=== PATIENT | male | born 1965 | race African-American/Black ===

== ENCOUNTER 2016-12-19 22:18 | Observation (INO) | payer BC ==
[~2016-12-19] VITALS: Ht 177.8 cm; Wt 70.6 kg
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
[2016-12-20 00:25] LABS: BASO % 0 % (0-3); EOS % 0 % (0-3); HEMATOCRIT 41.8 % (39.0-53.0); HEMOGLOBIN 13.9 g/dL (13.0-17.5); LYMPH # 1.5 x10^3/uL (1.0-4.8); LYMPH % 22 % (24-48); MEAN CORPUSCULAR HEMOGLOBIN 30 pg (25-35); MEAN CORPUSCULAR HGB CONC 33 g/dL (31-37); MEAN CORPUSCULAR VOLUME 92 fL (79-100); MONO % 7 % (0-9); NEUT % 71 % (31-73); PLATELET COUNT 159 x10^3/uL (140-400); RED BLOOD COUNT 4.56 x10^6/uL (4.30-5.70); RED CELL DISTRIBUTION WIDTH 13.9 % (11.5-14.5); WHITE BLOOD COUNT 6.9 x10^3/uL (4.0-11.0)
[2016-12-20] MEDS ORDERED: IV NORMAL SALINE 1000ML BAG 1,000 ML IV SCH (00:30)
[2016-12-20 00:35] LABS: CALCIUM 9.5 mg/dL (8.5-10.1); GFR 94.9; POTASSIUM 3.7 mmol/L (3.5-5.1)
[2016-12-20 00:41] LABS: ALBUMIN 4.2 g/dL (3.4-5.0); DIRECT BILIRUBIN 0.1 mg/dL (0.0-0.2); TOTAL BILIRUBIN 0.4 mg/dL (0.2-1.0); TOTAL PROTEIN 8.3 g/dL (6.4-8.2)
[2016-12-20 00:49] LABS: CKMB MASS 1.1 ng/mL (0.0-3.6)
--- NOTE | 2016-12-20 01:08 | RAD ---
RS Compliance Statement: One or more of the following individualized dose reduction techniques were utilized for this examination: 1. Automated exposure control 2. Adjustment of the mA and/or kV according to patient size 3. Use of iterative reconstruction technique CT HEAD WITHOUT CONTRAST History: POSSIBLE SEIZURE EPISODE WITH GENERALIZED WEAKNESS TONIGHT Comparison: None. Procedure: Axial images are obtained of the head from the skull base through the vertex without IV contrast. Findings: The ventricles and sulci are normal for the patient's age. No mass-effect, midline shift, hemorrhage, extra-axial fluid collection, or obvious acute infarction is identified. Basilar cisterns are patent. Bone windows demonstrate no acute calvarial abnormality. The visualized paranasal sinuses are clear. Mastoid air cells are well aerated. IMPRESSION: No acute intracranial abnormality. Electronically signed by: Solis Cordoba MD (12/20/2016 1:05 AM) [facility]
[2016-12-20] MEDS ORDERED: ACETAMINOPHEN 325 MG TABLET. PO PRN (01:30)
[2016-12-20] MEDS ORDERED: fentaNYL PF VIAL 100 MCG/2 ML VIAL IV PRN (01:30)
[2016-12-20] MEDS ORDERED: ONDANSETRON PF 4 MG/2 ML VIAL. IV PRN (01:30)
[2016-12-20] MEDS ORDERED: ASPIRIN 325 MG TABLET PO ONE (02:15)
[2016-12-20] MEDS: IV NORMAL SALINE 1000ML BAG 1,000 ML IV SCH ×2 (03:35→15:49)
--- NOTE | 2016-12-20 06:47 | EKG ---
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
[2016-12-20 07:00] VITALS: BP 112/73
--- NOTE | 2016-12-20 08:18 | RAD ---
EXAM: Chest one view. HISTORY: Chest pain. COMPARISON: None. FINDINGS: A frontal view of the chest is obtained. Paired small nodules in the bases most likely represent nipple shadows. There are no confluent infiltrates. Hyperinflation is consistent with chronic obstructive pulmonary disease. Calcified mediastinal lymph nodes are likely secondary to old granulomatous disease. There is no pneumothorax or pleural effusion. The heart is not enlarged. IMPRESSION: 1. Chronic obstructive pulmonary disease. 2. Paired basilar nodules are most likely nipple shadows. A repeat with nipple markers could confirm this only if there is persistent concern.
[2016-12-20] MEDS ORDERED: no home medications (08:48)
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
[2016-12-20] MEDS ORDERED: NICOTINE 21MG PATCH. TD PRN (10:45)
[2016-12-20 11:00] VITALS: BP 119/74
[2016-12-20 11:17] LABS: CHOLESTEROL/HDL RATIO 2.8
--- NOTE | 2016-12-20 14:27 | CARD ---
APPROVED REPORT EXAM: Two-dimensional and M-mode echocardiogram with Doppler and color Doppler. Other Information Quality : Average Rhythm : NSR INDICATION Chest Pain 2D DIMENSIONS Left Atrium(2D)2.9 (1.6-4.0cm)IVSd0.8 (0.7-1.1cm) Aortic Root(2D)3.2 (2.0-3.7cm)LVDd5.3 (3.9-5.9cm) LVOT Diameter2.1 (1.8-2.4cm)PWd0.8 (0.7-1.1cm) LVDs3.3 (2.5-4.0cm)FS (%) 38.0 % SV90.8 mlLVEF(%)67.8 (>50%) Aortic Valve AoV Peak Randolph.111.2cm/sAoV VTI21.9cm AO Peak GR.4.9mmHgLVOT Peak Randolph.106.1cm/s LVOT VTI 22.17cmAO Mean GR.2mmHg TANMAY (VMAX)3.08dx3DRV (VTI)3.57cm2 Mitral Valve MV E Lylqdkiq18.3cm/sMV DECEL [id number] MV A Srwbbhqo95.6cm/sMV SXR33am E/A Ratio1.4MV A [id number] MVA (PHT)3.05cm2 TDI E/Lateral E'6.3E/Medial E'7.7 Pulmonary Valve PV Peak Pusvecut41.4cm/sPV Peak Grad.2mmHg RVOT VTI15.6cm Tricuspid Valve TR P. Obwipsiu229gd/sRAP DVASPLTZ2wlIi TR Peak Gr.73spCwYJDX92wgAg Pulmonary Vein S1 Ifrqarse23.5cm/sD2 Ppjkgqlv33.8cm/s LEFT VENTRICLE The left ventricle is normal size. There is normal left ventricular wall thickness. Left ventricle sy stolic function is normal. The Ejection Fraction is 65-70%. There is normal LV segmental wall motion. The left ventricular diastolic function and filling is normal for age. There is no ventricular septa l defect visualized. RIGHT VENTRICLE The right ventricle is normal size. The right ventricular systolic function is normal. ATRIA The left atrium size is normal. The right atrium size is normal. The interatrial septum is intact wit h no evidence for an atrial septal defect or patent foramen ovale as noted on 2-D or Doppler imaging. AORTIC VALVE The aortic valve is normal in structure and function. The aortic valve is trileaflet. Doppler and Col or Flow revealed no significant aortic regurgitation. There is no significant aortic valvular stenosi s. MITRAL VALVE The mitral valve is normal in structure and function. There is no mitral valve stenosis. Doppler and Color Flow revealed no mitral valve regurgitation noted. TRICUSPID VALVE The tricuspid valve is normal in structure and function. Doppler and Color Flow revealed trace tricus pid regurgitation. The PA pressure was estimated at 25 mmHg. There is no tricuspid valve stenosis. PULMONIC VALVE The pulmonic valve is not well visualized. Doppler and Color Flow revealed no pulmonic valvular regur gitation. There is no pulmonic valvular stenosis. GREAT VESSELS The aortic root is normal in size. Normal pulmonary venous flow (Doppler). The IVC is normal in size and collapses >50% with inspiration. PERICARDIAL EFFUSION There is no evidence of significant pericardial effusion. Critical Notification Critical Value: No <Conclusion> Left ventricle systolic function is normal. The Ejection Fraction is 65-70%. There is normal LV segmental wall motion. Doppler and Color Flow revealed trace tricuspid regurgitation. The PA pressure was estimated at 25 mmHg. There is no evidence of significant pericardial effusion.
[2016-12-20 15:00] VITALS: BP 126/75
--- NOTE | 2016-12-20 15:28 | PDOC2 ---
NEUROLOGY CONSULT Date of Admission Date of Admission DATE: 12/20/16 TIME: 15:16 Reason for Consult Reason for Consult: IMPRESSION: Seizure or seizure like episode. Chest tightness. Generalized weakness x 10 minutes. HLD COPD RECOMMENDATIONS/PLAN: EEG lab: see orders. ASA daily. Zocor 20 mg HS. Cardiac evaluation. Treat medical diseases. HCT: negative. HISTORY OF THE PRESENT ILLNESS: 51-y-old AA male patient had symptoms of chest tightness. He was reportedly also had a seizure like episode, but no detailed information is about his seizure like episode this time. He stated he had similar seizure like episode 3 times so far this year but no AEDs nor a formal diagnosis. No focalized motor or sensory deficits. PAST MEDICAL HISTORY: Please see above. PAST SURGERY HISTORY: Pelvid plate? ALLERGY: Reviewed. MEDICATIONS: Refer to [facility] FAMILY HISTORY: HTN SOCIAL HISTORY: Lives with his at home. Denies illicit drug use. He smokes 1 pack of cigarettes a day for many years. He drinks 6-10 beers a week. REVIEW OF SYSTEMS: Constitutional: No malnutrition, weight loss, cachexia. Head: No traumatic brain or head injury this time. Skin: No edema, or rash. Ear: No infection. Eyes: No vision loss or color blindness. Nose: No bleeding or purulent discharges. Hearing: No hearing decrease. Neck: No current injury. Cardiac: Chest tightness. Pulmonary: COPD. GI: No GI ulcer, GI bleeding. Urinary/genital: No dysuria, incontinence, urinary retention. Endocrinologic: No cousin face, craniofacial dysmorphism, polydactyly. Skeletomuscular: No muscular atrophy, deformity. Neurological: see HP. Psychiatric: Smoking and drinking. Otherwise, not [id number] review of systems. PHYSICAL EXAMINATION: General appearance is in no acute distress. HEENT: Normocephalic and nontraumatic. Eyes, nose, ears, and throat are unremarkable. Neck is supple. No lymphadenopathy. No crepitus. Cardiovascular: S1, S2, regular rate and rhythm. Pulmonary: Clear to auscultation bilaterally. Abdomen: Bowel sounds are positive. Extremities: No rash, lesions, or edema. No restriction of range of motion NEUROLOGICAL EXAMINATION: Alert Oriented to time, place and person. PERRL. EOMI. CN: no focal findings. Muscle tone: within normal. Muscle strength: 5 DTR: 2 Plantar reflex: Flexor response bilaterally Gait: not examined in bed. Sensory exam: no abnormal findings. No acute cerebellar signs elicited. F-T-N test fine. Current Medications Current Medications Current Medications Sodium Chloride 1,000 ml @ 100 mls/hr Q10H IV Last administered on 12/20/16 00:57; Start 12/20/16 at 00:30; Stop 12/20/16 at 10:29; Status DC Ondansetron HCl (Zofran) 4 mg PRN Q8HRS PRN IV NAUSEA/VOMITING; Start 12/20/16 at 01:30; Stop 12/21/16 at 01:29 Fentanyl Citrate (Fentanyl 2ml Vial) 50 mcg PRN Q2HR PRN IV PAIN; Start at 01:30; Stop 12/21/16 at 01:29 Sodium Chloride 1,000 ml @ 100 mls/hr Q10H IV Last administered on 12/20/16 03:35; Start 12/20/16 at 01:30; Stop 12/21/16 at 01:29 Acetaminophen (Tylenol) 650 mg PRN Q4HRS PRN PO FEVER; Start 12/20/16 at 01:30 ; Stop 12/21/16 at 01:29 Aspirin ([employer] Aspirin) 325 mg 1X ONCE PO Last administered on 12/20/16 03:35 ; Start 12/20/16 at 02:15; Stop 12/20/16 at 02:16; Status DC Nicotine (Nicoderm Cq 21mg) 1 patch PRN DAILY PRN TD SMOKING CESSATION; Start 12/20/16 at 10:45 Aspirin (Lionel Aspirin) 325 mg DAILYWBKFT PO ; Start 12/21/16 at 08:00; Status UNV Simvastatin (Zocor) 20 mg HS PO ; Start 12/20/16 at 21:00; Status UNV Active Scripts Active Reported [no home medications] Allergies Allergies: Coded Allergies: adhesive tape (Verified Allergy, Intermediate, 12/20/16) Pork/Porcine Containing Products (Verified Allergy, Unknown, 12/19/16) Vitals VITALS Vital Signs Date Time Temp Pulse Resp B/P (MAP) Pulse Ox O2 Delivery O2 Flow Rate FiO2 12/20/16 11:00 97.0 55 18 119/74 (89) 99 Room Air 97.0 Labs Labs Laboratory Tests Test 12/19/16 22:55 12/20/16 07:21 White Blood Count 6.9 x10^3/uL (4.0-11.0) Red Blood Count 4.56 x10^6/uL (4.30-5.70) Hemoglobin 13.9 g/dL (13.0-17.5) Hematocrit 41.8 % (39.0-53.0) Mean Corpuscular Volume 92 fL (79-100) Mean Corpuscular Hemoglobin 30 pg (25-35) Mean Corpuscular Hemoglobin Concent 33 g/dL (31-37) Red Cell Distribution Width 13.9 % (11.5-14.5) Platelet Count 159 x10^3/uL (140-400) Neutrophils (%) (Auto) 71 % (31-73) Lymphocytes (%) (Auto) 22 % (24-48) Monocytes (%) (Auto) 7 % (0-9) Eosinophils (%) (Auto) 0 % (0-3) Basophils (%) (Auto) 0 % (0-3) Neutrophils # (Auto) 4.8 x10^3uL (1.8-7.7) Lymphocytes # (Auto) 1.5 x10^3/uL (1.0-4.8) Monocytes # (Auto) 0.4 x10^3/uL (0.0-1.1) Eosinophils # (Auto) 0.0 x10^3/uL (0.0-0.7) Basophils # (Auto) 0.0 x10^3/uL (0.0-0.2) Sodium Level 141 mmol/L (136-145) Potassium Level 3.7 mmol/L (3.5-5.1) Chloride Level 103 mmol/L (98-107) Carbon Dioxide Level 29 mmol/L (21-32) Anion Gap 9 (6-14) Blood Urea Nitrogen 14 mg/dL (8-26) Creatinine 1.0 mg/dL (0.7-1.3) Estimated GFR (Cockcroft-Gault) 94.9 Glucose Level 75 mg/dL (70-99) Calcium Level 9.5 mg/dL (8.5-10.1) Magnesium Level 2.0 mg/dL (1.8-2.4) Total Bilirubin 0.4 mg/dL (0.2-1.0) Direct Bilirubin 0.1 mg/dL (0.0-0.2) Aspartate Amino Transf (AST/SGOT) 17 U/L (15-37) Alanine Aminotransferase (ALT/SGPT) 13 U/L (16-63) Alkaline Phosphatase 63 U/L (46-116) Creatine Kinase 135 U/L (39-308) Creatine Kinase MB (Mass) 1.1 ng/mL (0.0-3.6) Creatine Kinase MB Relative Index 0.8 % (0-4) Troponin I Quantitative < 0.017 ng/mL (0.000-0.055) < 0.017 ng/mL (0.000-0.055) UW-Vop-V-Type Natriuretic Peptide 99 pg/mL (0-124) Total Protein 8.3 g/dL (6.4-8.2) Albumin 4.2 g/dL (3.4-5.0) Lipase 115 U/L (73-393) Triglycerides Level 50 mg/dL (0-150) Cholesterol Level 198 mg/dL (0-200) LDL Cholesterol, Calculated 117 mg/dL (0-100) VLDL Cholesterol, Calculated 10 mg/dL (0-40) Non-HDL Cholesterol Calculated 127 mg/dL (0-129) HDL Cholesterol 71 mg/dL (40-60) Cholesterol/HDL Ratio 2.8 Thyroid Stimulating Hormone (TSH) 0.665 uIU/mL (0.358-3.74) Laboratory Tests Test 12/19/16 22:55 12/20/16 07:21 White Blood Count 6.9 x10^3/uL (4.0-11.0) Red Blood Count 4.56 x10^6/uL (4.30-5.70) Hemoglobin 13.9 g/dL (13.0-17.5) Hematocrit 41.8 % (39.0-53.0) Mean Corpuscular Volume 92 fL (79-100) Mean Corpuscular Hemoglobin 30 pg (25-35) Mean Corpuscular Hemoglobin Concent 33 g/dL (31-37) Red Cell Distribution Width 13.9 % (11.5-14.5) Platelet Count 159 x10^3/uL (140-400) Neutrophils (%) (Auto) 71 % (31-73) Lymphocytes (%) (Auto) 22 % (24-48) Monocytes (%) (Auto) 7 % (0-9) Eosinophils (%) (Auto) 0 % (0-3) Basophils (%) (Auto) 0 % (0-3) Neutrophils # (Auto) 4.8 x10^3uL (1.8-7.7) Lymphocytes # (Auto) 1.5 x10^3/uL (1.0-4.8) Monocytes # (Auto) 0.4 x10^3/uL (0.0-1.1) Eosinophils # (Auto) 0.0 x10^3/uL (0.0-0.7) Basophils # (Auto) 0.0 x10^3/uL (0.0-0.2) Sodium Level 141 mmol/L (136-145) Potassium Level 3.7 mmol/L (3.5-5.1) Chloride Level 103 mmol/L (98-107) Carbon Dioxide Level 29 mmol/L (21-32) Anion Gap 9 (6-14) Blood Urea Nitrogen 14 mg/dL (8-26) Creatinine 1.0 mg/dL (0.7-1.3) Estimated GFR (Cockcroft-Gault) 94.9 Glucose Level 75 mg/dL (70-99) Calcium Level 9.5 mg/dL (8.5-10.1) Magnesium Level 2.0 mg/dL (1.8-2.4) Total Bilirubin 0.4 mg/dL (0.2-1.0) Direct Bilirubin 0.1 mg/dL (0.0-0.2) Aspartate Amino Transf (AST/SGOT) 17 U/L (15-37) Alanine Aminotransferase (ALT/SGPT) 13 U/L (16-63) Alkaline Phosphatase 63 U/L (46-116) Creatine Kinase 135 U/L (39-308) Creatine Kinase MB (Mass) 1.1 ng/mL (0.0-3.6) Creatine Kinase MB Relative Index 0.8 % (0-4) Troponin I Quantitative < 0.017 ng/mL (0.000-0.055) < 0.017 ng/mL (0.000-0.055) RA-Cbt-D-Type Natriuretic Peptide 99 pg/mL (0-124) Total Protein 8.3 g/dL (6.4-8.2) Albumin 4.2 g/dL (3.4-5.0) Lipase 115 U/L (73-393) Triglycerides Level 50 mg/dL (0-150) Cholesterol Level 198 mg/dL (0-200) LDL Cholesterol, Calculated 117 mg/dL (0-100) VLDL Cholesterol, Calculated 10 mg/dL (0-40) Non-HDL Cholesterol Calculated 127 mg/dL (0-129) HDL Cholesterol 71 mg/dL (40-60) Cholesterol/HDL Ratio 2.8 Thyroid Stimulating Hormone (TSH) 0.665 uIU/mL (0.358-3.74) DAVID PAYNE MD Dec 20, 2016 15:28
[2016-12-20 19:00] VITALS: BP 117/76
[2016-12-20] MEDS: SIMVASTATIN 20 MG TABLET PO SCH (21:00)
[2016-12-20 23:00] VITALS: BP 147/93
[2016-12-21] MEDS: IV NORMAL SALINE 1000ML BAG 1,000 ML IV SCH (01:43)
[2016-12-21 03:00] VITALS: BP 134/79
[2016-12-21 07:00] VITALS: BP 116/82
[2016-12-21 07:03] LABS: BASO % 1 % (0-3); EOS % 2 % (0-3); HEMATOCRIT 39.1 % (39.0-53.0); HEMOGLOBIN 12.6 g/dL (13.0-17.5); LYMPH # 1.9 x10^3/uL (1.0-4.8); LYMPH % 66 % (24-48); MEAN CORPUSCULAR HEMOGLOBIN 30 pg (25-35); MEAN CORPUSCULAR HGB CONC 32 g/dL (31-37); MEAN CORPUSCULAR VOLUME 93 fL (79-100); MONO % 10 % (0-9); NEUT % 22 % (31-73); PLATELET COUNT 144 x10^3/uL (140-400); RED BLOOD COUNT 4.21 x10^6/uL (4.30-5.70); WHITE BLOOD COUNT 2.9 x10^3/uL (4.0-11.0)
[2016-12-21 07:07] LABS: CALCIUM 8.3 mg/dL (8.5-10.1); CREATININE 0.9 mg/dL (0.7-1.3); GFR 107.2
[2016-12-21] MEDS: ASPIRIN 325 MG TABLET PO SCH (09:00)
[2016-12-21 10:57] VITALS: BP 116/76
[2016-12-21 11:23] LABS: BARBITURATES NEG (NEG); BENZODIAZEPINES NEG (NEG); CANNABINOIDS POS (NEG); COCAINE NEG (NEG); METHADONE NEG (NEG); OPIATES NEG (NEG); PHENCYCLIDINE NEG (NEG)
[2016-12-21 11:30] LABS: BILIRUBIN,URINE NEGATIVE (NEG); GLUCOSE,URINE NEGATIVE (NEG); NITRITE,URINE NEGATIVE (NEG); PH,URINE 5.5; PROTEIN,URINE NEGATIVE (NEG-TRACE); UROBILINOGEN,URINE 0.2 mg/dL (0.2 mg/dL)
[2016-12-21 11:44] LABS: BACTERIA,URINE 0 /HPF (0-FEW); RBC,URINE 0 /HPF (0-2); SQUAMOUS EPITHELIAL CELL,UR FEW /LPF; WBC,URINE 0 /HPF (0-4)
[2016-12-21 12:00] LABS: % EOS 2 % (0-5); PLT ESTIMATE ADEQUATE (ADEQUATE)
--- NOTE | 2016-12-21 12:14 | PDOC ---
PROGRESS NOTES Assessment Assessment Seizure or seizure like episode. Chest tightness. Right eye blurred vision and dizziness on 12/21/16. Headache. Generalized weakness x 10 minutes. HLD COPD RECOMMENDATIONS/PLAN: Brain MRI w/wo contrast. Continue ASA daily. Continue Zocor 20 mg HS. Cardiac evaluation. Treat medical diseases. HCT: negative. EEG on 12/20: Normal study. HISTORY OF THE PRESENT ILLNESS: 51-y-old AA male patient had symptoms of chest tightness. He was reportedly also had a seizure like episode, but no detailed information is about his seizure like episode this time. He stated he had similar seizure like episode 3 times so far this year but no AEDs nor a formal diagnosis. No focalized motor or sensory deficits. He complained right side blurred vision, dizziness on 12/21/16 also stated he has headaches from time to time. PAST MEDICAL HISTORY: Please see above. PAST SURGERY HISTORY: Pelvid plate? ALLERGY: Reviewed. MEDICATIONS: Refer to [facility] FAMILY HISTORY: HTN SOCIAL HISTORY: Lives with his at home. Denies illicit drug use. He smokes 1 pack of cigarettes a day for many years. He drinks 6-10 beers a week. REVIEW OF SYSTEMS: Constitutional: No malnutrition, weight loss, cachexia. Head: No traumatic brain or head injury this time. Skin: No edema, or rash. Ear: No infection. Eyes: No vision loss or color blindness. Nose: No bleeding or purulent discharges. Hearing: No hearing decrease. Neck: No current injury. Cardiac: Chest tightness. Pulmonary: COPD. GI: No GI ulcer, GI bleeding. Urinary/genital: No dysuria, incontinence, urinary retention. Endocrinologic: No cousin face, craniofacial dysmorphism, polydactyly. Skeletomuscular: No muscular atrophy, deformity. Neurological: see HP. Psychiatric: Smoking and drinking. Otherwise, not [id number] review of systems. PHYSICAL EXAMINATION: General appearance is in no acute distress. HEENT: Normocephalic and nontraumatic. Eyes, nose, ears, and throat are unremarkable. Neck is supple. No lymphadenopathy. No crepitus. Cardiovascular: S1, S2, regular rate and rhythm. Pulmonary: Clear to auscultation bilaterally. Abdomen: Bowel sounds are positive. Extremities: No rash, lesions, or edema. No restriction of range of motion NEUROLOGICAL EXAMINATION: Alert Oriented to time, place and person. PERRL. EOMI. CN: no focal findings. Muscle tone: within normal. Muscle strength: 5 DTR: 2 Plantar reflex: Flexor response bilaterally Gait: not examined in bed. Sensory exam: no abnormal findings. No acute cerebellar signs elicited. F-T-N test fine. Objective Objective Vital Signs Date Time Temp Pulse Resp B/P (MAP) Pulse Ox O2 Delivery O2 Flow Rate FiO2 12/21/16 10:57 97.7 70 18 116/76 (89) 100 Room Air 97.7 Intake and Output 12/21/16 07:00 Intake Total 600 ml Output Total 251 ml Balance 349 ml Intake Oral 600 ml Output Urine Total 251 ml # Voids 1 Vitals Signs Vitals VS - Last 72 Hours, by Label Date Time Temp Pulse Resp B/P (MAP) Pulse Ox O2 Delivery O2 Flow Rate FiO2 12/21/16 10:57 97.7 70 18 116/76 (89) 100 Room Air 97.7 12/21/16 08:00 Room Air 12/21/16 07:00 97.7 61 18 116/82 (93) 100 Room Air 97.7 12/21/16 03:00 98.2 65 18 134/79 (97) 97 Room Air 98.2 12/20/16 23:00 97.5 70 19 147/93 (111) 98 Room Air 97.5 12/20/16 19:36 Room Air 12/20/16 19:00 97.0 63 17 117/76 (90) 97 Room Air 97.0 12/20/16 15:00 98.0 74 18 126/75 (92) 99 Room Air 98.0 12/20/16 11:00 97.0 55 18 119/74 (89) 99 Room Air 97.0 12/20/16 08:00 Room Air 12/20/16 07:00 96.9 54 18 112/73 (86) 97 Room Air 96.9 Laboratory Laboratory Laboratory Tests Test 12/20/16 15:25 12/21/16 06:10 Troponin I Quantitative 0.018 ng/mL (0.000-0.055) White Blood Count 2.9 x10^3/uL (4.0-11.0) Red Blood Count 4.21 x10^6/uL (4.30-5.70) Hemoglobin 12.6 g/dL (13.0-17.5) Hematocrit 39.1 % (39.0-53.0) Mean Corpuscular Volume 93 fL (79-100) Mean Corpuscular Hemoglobin 30 pg (25-35) Mean Corpuscular Hemoglobin Concent 32 g/dL (31-37) Red Cell Distribution Width 14.0 % (11.5-14.5) Platelet Count 144 x10^3/uL (140-400) Neutrophils (%) (Auto) 22 % (31-73) Lymphocytes (%) (Auto) 66 % (24-48) Monocytes (%) (Auto) 10 % (0-9) Eosinophils (%) (Auto) 2 % (0-3) Basophils (%) (Auto) 1 % (0-3) Neutrophils # (Auto) 0.6 x10^3uL (1.8-7.7) Lymphocytes # (Auto) 1.9 x10^3/uL (1.0-4.8) Monocytes # (Auto) 0.3 x10^3/uL (0.0-1.1) Eosinophils # (Auto) 0.0 x10^3/uL (0.0-0.7) Basophils # (Auto) 0.0 x10^3/uL (0.0-0.2) Segmented Neutrophils % 21 % (35-66) Band Neutrophils % 1 % (0-9) Lymphocytes % 68 % (24-48) Atypical Lymphocytes % (Manual) 2 % (0-0) Monocytes % 6 % (0-10) Eosinophils % 2 % (0-5) Platelet Estimate Adequate (ADEQUATE) Sodium Level 144 mmol/L (136-145) Potassium Level 4.0 mmol/L (3.5-5.1) Chloride Level 109 mmol/L (98-107) Carbon Dioxide Level 27 mmol/L (21-32) Anion Gap 8 (6-14) Blood Urea Nitrogen 11 mg/dL (8-26) Creatinine 0.9 mg/dL (0.7-1.3) Estimated GFR (Cockcroft-Gault) 107.2 Glucose Level 83 mg/dL (70-99) Calcium Level 8.3 mg/dL (8.5-10.1) Medication Medications Current Medications Aspirin ([employer] Aspirin) 325 mg DAILYWBKFT PO Last administered on 12/21/16 09: 00; Start 12/21/16 at 08:00 Simvastatin (Zocor) 20 mg HS PO Last administered on 12/20/16 21:00; Start at 21:00 Comment Review of Relevant I have reviewed the following items josh (where applicable) has been applied. DAVID PAYNE MD Dec 21, 2016 12:14
--- NOTE | 2016-12-21 12:29 | PDOC ---
PROGRESS NOTES Chief Complaint Chief Complaint 1. Possible seizure 2. Chest pain 3. OA 4. Alcohol abuse 5. Tobacco use History of Present Illness History of Present Illness pt resting comfortably in bed, denies any complaints, answers all questions, states he drinks about 7 beers on the weekend but rarely on weekdays Vitals Vitals Vital Signs Date Time Temp Pulse Resp B/P (MAP) Pulse Ox O2 Delivery O2 Flow Rate FiO2 12/21/16 10:57 97.7 70 18 116/76 (89) 100 Room Air 97.7 Physical Exam General: Alert, Oriented X3, Cooperative, No acute distress Heart: Regular rate, Normal S1, Normal S2, No murmurs Lungs: Clear Abdomen: Normal bowel sounds, Soft, No tenderness, No hepatosplenomegaly, No masses Extremities: No clubbing, No cyanosis, No edema, Normal pulses, No tenderness/ swelling Skin: No rashes, No breakdown, No significant lesion Labs LABS Laboratory Tests Test 12/20/16 15:25 12/21/16 06:10 Troponin I Quantitative 0.018 ng/mL (0.000-0.055) White Blood Count 2.9 x10^3/uL (4.0-11.0) Red Blood Count 4.21 x10^6/uL (4.30-5.70) Hemoglobin 12.6 g/dL (13.0-17.5) Hematocrit 39.1 % (39.0-53.0) Mean Corpuscular Volume 93 fL (79-100) Mean Corpuscular Hemoglobin 30 pg (25-35) Mean Corpuscular Hemoglobin Concent 32 g/dL (31-37) Red Cell Distribution Width 14.0 % (11.5-14.5) Platelet Count 144 x10^3/uL (140-400) Neutrophils (%) (Auto) 22 % (31-73) Lymphocytes (%) (Auto) 66 % (24-48) Monocytes (%) (Auto) 10 % (0-9) Eosinophils (%) (Auto) 2 % (0-3) Basophils (%) (Auto) 1 % (0-3) Neutrophils # (Auto) 0.6 x10^3uL (1.8-7.7) Lymphocytes # (Auto) 1.9 x10^3/uL (1.0-4.8) Monocytes # (Auto) 0.3 x10^3/uL (0.0-1.1) Eosinophils # (Auto) 0.0 x10^3/uL (0.0-0.7) Basophils # (Auto) 0.0 x10^3/uL (0.0-0.2) Segmented Neutrophils % 21 % (35-66) Band Neutrophils % 1 % (0-9) Lymphocytes % 68 % (24-48) Atypical Lymphocytes % (Manual) 2 % (0-0) Monocytes % 6 % (0-10) Eosinophils % 2 % (0-5) Platelet Estimate Adequate (ADEQUATE) Sodium Level 144 mmol/L (136-145) Potassium Level 4.0 mmol/L (3.5-5.1) Chloride Level 109 mmol/L (98-107) Carbon Dioxide Level 27 mmol/L (21-32) Anion Gap 8 (6-14) Blood Urea Nitrogen 11 mg/dL (8-26) Creatinine 0.9 mg/dL (0.7-1.3) Estimated GFR (Cockcroft-Gault) 107.2 Glucose Level 83 mg/dL (70-99) Calcium Level 8.3 mg/dL (8.5-10.1) Review of Systems Review of Systems denies N/V/D and WEBB Assessment and Plan Assessmemt and Plan Assessment 1. Possible seizure 2. Chest pain 3. OA 4. Alcohol abuse 5. Tobacco use Plan 1. Head CT showed no acute processes 2. EEG today 3. Consulted alcohol/tobacco cessation 4. CMP with AST/ALT 5. PT/OT 6. Discussed plan of care with nursing 7. Continue home meds 8. Appreciate subspecialty input 9. Zofran prn for nausea 10. Added zocor and ASA per neuro Problems: Comment Review of Relevant I have reviewed the following items josh (where applicable) has been applied. Labs Laboratory Tests Test 12/19/16 22:55 12/20/16 07:21 12/20/16 11:05 12/20/16 15:25 White Blood Count 6.9 x10^3/uL (4.0-11.0) Red Blood Count 4.56 x10^6/uL (4.30-5.70) Hemoglobin 13.9 g/dL (13.0-17.5) Hematocrit 41.8 % (39.0-53.0) Mean Corpuscular Volume 92 fL (79-100) Mean Corpuscular Hemoglobin 30 pg (25-35) Mean Corpuscular Hemoglobin Concent 33 g/dL (31-37) Red Cell Distribution Width 13.9 % (11.5-14.5) Platelet Count 159 x10^3/uL (140-400) Neutrophils (%) (Auto) 71 % (31-73) Lymphocytes (%) (Auto) 22 % (24-48) Monocytes (%) (Auto) 7 % (0-9) Eosinophils (%) (Auto) 0 % (0-3) Basophils (%) (Auto) 0 % (0-3) Neutrophils # (Auto) 4.8 x10^3uL (1.8-7.7) Lymphocytes # (Auto) 1.5 x10^3/uL (1.0-4.8) Monocytes # (Auto) 0.4 x10^3/uL (0.0-1.1) Eosinophils # (Auto) 0.0 x10^3/uL (0.0-0.7) Basophils # (Auto) 0.0 x10^3/uL (0.0-0.2) Sodium Level 141 mmol/L (136-145) Potassium Level 3.7 mmol/L (3.5-5.1) Chloride Level 103 mmol/L (98-107) Carbon Dioxide Level 29 mmol/L (21-32) Anion Gap 9 (6-14) Blood Urea Nitrogen 14 mg/dL (8-26) Creatinine 1.0 mg/dL (0.7-1.3) Estimated GFR (Cockcroft-Gault) 94.9 Glucose Level 75 mg/dL (70-99) Calcium Level 9.5 mg/dL (8.5-10.1) Magnesium Level 2.0 mg/dL (1.8-2.4) Total Bilirubin 0.4 mg/dL (0.2-1.0) Direct Bilirubin 0.1 mg/dL (0.0-0.2) Aspartate Amino Transf (AST/SGOT) 17 U/L (15-37) Alanine Aminotransferase (ALT/SGPT) 13 U/L (16-63) Alkaline Phosphatase 63 U/L (46-116) Creatine Kinase 135 U/L (39-308) Creatine Kinase MB (Mass) 1.1 ng/mL (0.0-3.6) Creatine Kinase MB Relative Index 0.8 % (0-4) Troponin I Quantitative < 0.017 ng/mL (0.000-0.055) < 0.017 ng/mL (0.000-0.055) 0.018 ng/mL (0.000-0.055) DW-Spi-B-Type Natriuretic Peptide 99 pg/mL (0-124) Total Protein 8.3 g/dL (6.4-8.2) Albumin 4.2 g/dL (3.4-5.0) Lipase 115 U/L (73-393) Triglycerides Level 50 mg/dL (0-150) Cholesterol Level 198 mg/dL (0-200) LDL Cholesterol, Calculated 117 mg/dL (0-100) VLDL Cholesterol, Calculated 10 mg/dL (0-40) Non-HDL Cholesterol Calculated 127 mg/dL (0-129) HDL Cholesterol 71 mg/dL (40-60) Cholesterol/HDL Ratio 2.8 Thyroid Stimulating Hormone (TSH) 0.665 uIU/mL (0.358-3.74) Urine Collection Type Unknown Urine Color Yellow Urine Clarity Clear Urine pH 5.5 Urine Specific [place] 1.010 Urine Protein Negative mg/dL (NEG-TRACE) Urine Glucose (UA) Negative mg/dL (NEG) Urine Ketones (Stick) Negative mg/dL (NEG) Urine Blood Negative (NEG) Urine Nitrite Negative (NEG) Urine Bilirubin Negative (NEG) Urine Urobilinogen Dipstick 0.2 mg/dL (0.2 mg/dL) Urine Leukocyte Esterase Negative (NEG) Urine RBC 0 /HPF (0-2) Urine WBC 0 /HPF (0-4) Urine Squamous Epithelial Cells Few /LPF Urine Bacteria 0 /HPF (0-FEW) Urine Opiates Screen Neg (NEG) Urine Methadone Screen Neg (NEG) Urine Barbiturates Neg (NEG) Urine Phencyclidine Screen Neg (NEG) Urine Amphetamine/Methamphetamine Neg (NEG) Urine Benzodiazepines Screen Neg (NEG) Urine Cocaine Screen Neg (NEG) Urine Cannabinoids Screen Pos (NEG) Urine Ethyl Alcohol Neg (NEG) Test 12/21/16 06:10 White Blood Count 2.9 x10^3/uL (4.0-11.0) Red Blood Count 4.21 x10^6/uL (4.30-5.70) Hemoglobin 12.6 g/dL (13.0-17.5) Hematocrit 39.1 % (39.0-53.0) Mean Corpuscular Volume 93 fL (79-100) Mean Corpuscular Hemoglobin 30 pg (25-35) Mean Corpuscular Hemoglobin Concent 32 g/dL (31-37) Red Cell Distribution Width 14.0 % (11.5-14.5) Platelet Count 144 x10^3/uL (140-400) Neutrophils (%) (Auto) 22 % (31-73) Lymphocytes (%) (Auto) 66 % (24-48) Monocytes (%) (Auto) 10 % (0-9) Eosinophils (%) (Auto) 2 % (0-3) Basophils (%) (Auto) 1 % (0-3) Neutrophils # (Auto) 0.6 x10^3uL (1.8-7.7) Lymphocytes # (Auto) 1.9 x10^3/uL (1.0-4.8) Monocytes # (Auto) 0.3 x10^3/uL (0.0-1.1) Eosinophils # (Auto) 0.0 x10^3/uL (0.0-0.7) Basophils # (Auto) 0.0 x10^3/uL (0.0-0.2) Segmented Neutrophils % 21 % (35-66) Band Neutrophils % 1 % (0-9) Lymphocytes % 68 % (24-48) Atypical Lymphocytes % (Manual) 2 % (0-0) Monocytes % 6 % (0-10) Eosinophils % 2 % (0-5) Platelet Estimate Adequate (ADEQUATE) Sodium Level 144 mmol/L (136-145) Potassium Level 4.0 mmol/L (3.5-5.1) Chloride Level 109 mmol/L (98-107) Carbon Dioxide Level 27 mmol/L (21-32) Anion Gap 8 (6-14) Blood Urea Nitrogen 11 mg/dL (8-26) Creatinine 0.9 mg/dL (0.7-1.3) Estimated GFR (Cockcroft-Gault) 107.2 Glucose Level 83 mg/dL (70-99) Calcium Level 8.3 mg/dL (8.5-10.1) Laboratory Tests Test 12/20/16 15:25 12/21/16 06:10 Troponin I Quantitative 0.018 ng/mL (0.000-0.055) White Blood Count 2.9 x10^3/uL (4.0-11.0) Red Blood Count 4.21 x10^6/uL (4.30-5.70) Hemoglobin 12.6 g/dL (13.0-17.5) Hematocrit 39.1 % (39.0-53.0) Mean Corpuscular Volume 93 fL (79-100) Mean Corpuscular Hemoglobin 30 pg (25-35) Mean Corpuscular Hemoglobin Concent 32 g/dL (31-37) Red Cell Distribution Width 14.0 % (11.5-14.5) Platelet Count 144 x10^3/uL (140-400) Neutrophils (%) (Auto) 22 % (31-73) Lymphocytes (%) (Auto) 66 % (24-48) Monocytes (%) (Auto) 10 % (0-9) Eosinophils (%) (Auto) 2 % (0-3) Basophils (%) (Auto) 1 % (0-3) Neutrophils # (Auto) 0.6 x10^3uL (1.8-7.7) Lymphocytes # (Auto) 1.9 x10^3/uL (1.0-4.8) Monocytes # (Auto) 0.3 x10^3/uL (0.0-1.1) Eosinophils # (Auto) 0.0 x10^3/uL (0.0-0.7) Basophils # (Auto) 0.0 x10^3/uL (0.0-0.2) Segmented Neutrophils % 21 % (35-66) Band Neutrophils % 1 % (0-9) Lymphocytes % 68 % (24-48) Atypical Lymphocytes % (Manual) 2 % (0-0) Monocytes % 6 % (0-10) Eosinophils % 2 % (0-5) Platelet Estimate Adequate (ADEQUATE) Sodium Level 144 mmol/L (136-145) Potassium Level 4.0 mmol/L (3.5-5.1) Chloride Level 109 mmol/L (98-107) Carbon Dioxide Level 27 mmol/L (21-32) Anion Gap 8 (6-14) Blood Urea Nitrogen 11 mg/dL (8-26) Creatinine 0.9 mg/dL (0.7-1.3) Estimated GFR (Cockcroft-Gault) 107.2 Glucose Level 83 mg/dL (70-99) Calcium Level 8.3 mg/dL (8.5-10.1) Medications Current Medications Sodium Chloride 1,000 ml @ 100 mls/hr Q10H IV Last administered on 12/20/16 00:57; Start 12/20/16 at 00:30; Stop 12/20/16 at 10:29; Status DC Ondansetron HCl (Zofran) 4 mg PRN Q8HRS PRN IV NAUSEA/VOMITING; Start 12/20/16 at 01:30; Stop 12/21/16 at 01:29; Status DC Fentanyl Citrate (Fentanyl 2ml Vial) 50 mcg PRN Q2HR PRN IV PAIN; Start at 01:30; Stop 12/21/16 at 01:29; Status DC Sodium Chloride 1,000 ml @ 100 mls/hr Q10H IV Last administered on 12/21/16 01:43; Start 12/20/16 at 01:30; Stop 12/21/16 at 01:29; Status DC Acetaminophen (Tylenol) 650 mg PRN Q4HRS PRN PO FEVER; Start 12/20/16 at 01:30 ; Stop 12/21/16 at 01:29; Status DC Aspirin (PinBridge Aspirin) 325 mg 1X ONCE PO Last administered on 12/20/16 03:35 ; Start 12/20/16 at 02:15; Stop 12/20/16 at 02:16; Status DC Nicotine (Nicoderm Cq 21mg) 1 patch PRN DAILY PRN TD SMOKING CESSATION Last administered on 12/20/16 18:30; Start 12/20/16 at 10:45 Aspirin (Lionel Aspirin) 325 mg DAILYWBKFT PO Last administered on 12/21/16 09: 00; Start 12/21/16 at 08:00 Simvastatin (Zocor) 20 mg HS PO Last administered on 12/20/16 21:00; Start at 21:00 Active Scripts Active Reported [no home medications] Vitals/I & O Vital Sign - Last 24 Hours 12/20/16 12/20/16 12/20/16 12/20/16 15:00 19:00 19:36 23:00 Temp 98.0 97.0 97.5 98.0 97.0 97.5 Pulse 74 63 70 Resp 18 19 B/P (MAP) 126/75 (92) 117/76 (90) 147/93 (111) Pulse Ox 99 97 98 O2 Delivery Room Air Room Air Room Air Room Air 12/21/16 12/21/16 12/21/16 12/21/16 03:00 07:00 08:00 10:57 Temp 98.2 97.7 97.7 98.2 97.7 97.7 Pulse 65 61 70 Resp 18 B/P (MAP) 134/79 (97) 116/82 (93) 116/76 (89) Pulse Ox 97 100 100 O2 Delivery Room Air Room Air Room Air Room Air Intake and Output 12/20/16 12/20/16 12/21/16 15:00 23:00 07:00 Intake Total 600 ml Output Total 1 ml 250 ml Balance 599 ml -250 ml WIL MAURICIO III DO Dec 21, 2016 12:29
[2016-12-21] MEDS ORDERED: GADOBUTROL 7.5 MMOL/7.5 ML VIAL IV ONE (12:45)
--- NOTE | 2016-12-21 14:11 | RAD ---
MRI Brain with and without contrast History: Loss of vision followed by headache, history of seizures Technique: Multiplanar, multi sequential pre and postcontrast MR imaging was performed of the brain. Contrast: 7 cc Gadavist Comparison: None Findings: There is mild motion. There is no evidence of recent infarct or cytotoxic edema. The ventricles, sulci, and cisterns are within normal limits in size and configuration. There is no significant midline shift, intraaxial mass effect, or focal abnormal extra-axial fluid collection. There is no significant signal abnormality of the brain parenchyma. There is no nodular parenchymal or leptomeningeal enhancement. There is preservation of the major intracranial flow-voids at the skull base. The cerebellar tonsils are normal in location. There is no significant abnormality of the pineal gland or pituitary gland. There is mucous retention cyst versus polyp of the superior right maxillary sinus up to 1.3 cm transverse, another focus more laterally up to 1.3 cm. There is patchy very mild ethmoid air cell mucosal thickening. The mastoid air cells are aerated. There is preserved marrow signal of the clivus. Impression: 1. There is no significant intracranial abnormality. 2. There are either complex mucous retention cysts versus polyps of the right maxillary sinus. Electronically signed by: Bcuky Jim MD (12/21/2016 2:08 PM) [id number]
[2016-12-21 14:15] LABS: ALBUMIN/GLOBULIN RATIO 0.9 (1.0-1.7); CALCIUM 7.8 mg/dL (8.5-10.1); GFR 94.9; TOTAL BILIRUBIN 0.2 mg/dL (0.2-1.0); TOTAL PROTEIN 6.3 g/dL (6.4-8.2)
[2016-12-21 14:47] VITALS: BP 116/79
--- NOTE | 2016-12-21 15:25 | PDOC2 ---
EEG REPORT METHODS: Twenty electrodes were applied according to the International 10-20 electrode placement system. EKG monitoring, hyperventilation (HV), intermittent photic stimulation (IPS), monopolar and bipolar montages were routinely utilized. The record was obtained on a digital system video monitor. OBJECT: This is 51-year old AA male patient with history of seizure like episode. Antiepileptic medications: None. The EEG was requested to rule out epileptiform activity. Sedation during this study: None. FINDINGS: Background: 1. BACKGROUND: The patient was recorded in the awake, drowsy and sleep state. The overall background amplitude is 40-50 microvolts. A posterior dominant rhythm of 8-9 Kori is observed with superimposed mixture of theta and delta frequencies. Abnormalities: 2. ABNORMALITY: No epileptiform activity seen. No focal of diffuse slowing. Activations: 3. ACTIVATION: HV: Performed. No epileptiform or electrographic seizures noted. IPS: Performed with photic driving. IMPRESSION: This EEG is a normal study for the awake, drowsy, and sleep states. No focal, lateralizing, or epileptiform activity is seen. DAVID PAYNE MD Dec 21, 2016 15:25
[2016-12-21 19:00] VITALS: BP 113/78
[2016-12-21] MEDS: SIMVASTATIN 20 MG TABLET PO SCH (21:34)
[2016-12-21 23:00] VITALS: BP 139/92
[2016-12-22 05:32] LABS: ALBUMIN 3.4 g/dL (3.4-5.0); ALBUMIN/GLOBULIN RATIO 0.9 (1.0-1.7); CALCIUM 9.1 mg/dL (8.5-10.1); CREATININE 0.8 mg/dL (0.7-1.3); GFR 122.8; POTASSIUM 3.9 mmol/L (3.5-5.1); TOTAL BILIRUBIN 0.2 mg/dL (0.2-1.0); TOTAL PROTEIN 7.3 g/dL (6.4-8.2)
[2016-12-22 07:00] VITALS: BP 122/80
[2016-12-22] MEDS: ASPIRIN 325 MG TABLET PO SCH (08:47)
[2016-12-22 11:18] VITALS: BP 133/90
[2016-12-22 14:49] VITALS: BP 124/78
--- NOTE | 2016-12-22 17:26 | PDOC ---
PROGRESS NOTES Assessment Assessment Seizure like episodes, related to marijuana most likely. Chest tightness. Right eye blurred vision and dizziness on 12/21/16. Headache. Generalized weakness, brief, on 12/20/16. HLD COPD No evidence of acute CVA or brain tumor this time. RECOMMENDATIONS/PLAN: Continue ASA daily. Continue Zocor 20 mg HS. Cardiac evaluation. Treat medical diseases. Suggest LTM VEEG for 24-hours, patient stated he needed to talk with his . HCT: negative. EEG on 12/20: Normal study. HISTORY OF THE PRESENT ILLNESS: 51-y-old AA male patient had symptoms of chest tightness. He was reportedly also had a seizure like episode, but no detailed information is about his seizure like episode this time. He stated he had similar seizure like episode 3 times so far this year but no AEDs nor a formal diagnosis. No focalized motor or sensory deficits. He complained right side blurred vision, dizziness on 12/21/16 also stated he has headaches from time to time. PAST MEDICAL HISTORY: Please see above. PAST SURGERY HISTORY: Pelvid plate? ALLERGY: Reviewed. MEDICATIONS: Refer to [facility] FAMILY HISTORY: HTN SOCIAL HISTORY: Lives with his at home. Denies illicit drug use. He smokes 1 pack of cigarettes a day for many years. He drinks 6-10 beers a week. REVIEW OF SYSTEMS: Constitutional: No malnutrition, weight loss, cachexia. Head: No traumatic brain or head injury this time. Skin: No edema, or rash. Ear: No infection. Eyes: No vision loss or color blindness. Nose: No bleeding or purulent discharges. Hearing: No hearing decrease. Neck: No current injury. Cardiac: Chest tightness. Pulmonary: COPD. GI: No GI ulcer, GI bleeding. Urinary/genital: No dysuria, incontinence, urinary retention. Endocrinologic: No cousin face, craniofacial dysmorphism, polydactyly. Skeletomuscular: No muscular atrophy, deformity. Neurological: see HP. Psychiatric: Smoking and drinking. Otherwise, not [id number] review of systems. PHYSICAL EXAMINATION: General appearance is in no acute distress. HEENT: Normocephalic and nontraumatic. Eyes, nose, ears, and throat are unremarkable. Neck is supple. No lymphadenopathy. No crepitus. Cardiovascular: S1, S2, regular rate and rhythm. Pulmonary: Clear to auscultation bilaterally. Abdomen: Bowel sounds are positive. Extremities: No rash, lesions, or edema. No restriction of range of motion NEUROLOGICAL EXAMINATION: Alert Oriented to time, place and person. PERRL. EOMI. CN: no focal findings. Muscle tone: within normal. Muscle strength: 5 DTR: 2 Plantar reflex: Flexor response bilaterally Gait: not examined in bed. Sensory exam: no abnormal findings. No acute cerebellar signs elicited. F-T-N test fine. Objective Objective Vital Signs Date Time Temp Pulse Resp B/P (MAP) Pulse Ox O2 Delivery O2 Flow Rate FiO2 12/22/16 14:49 97.9 61 18 124/78 (93) 100 Room Air 97.9 Intake and Output 12/22/16 06:59 Intake Total 1580 ml Balance 1580 ml Intake Oral 1580 ml # Voids 7 Vitals Signs Vitals VS - Last 72 Hours, by Label Date Time Temp Pulse Resp B/P (MAP) Pulse Ox O2 Delivery O2 Flow Rate FiO2 12/22/16 14:49 97.9 61 18 124/78 (93) 100 Room Air 97.9 12/22/16 11:18 98.0 62 18 133/90 (104) 99 Room Air 98.0 12/22/16 08:00 Room Air 12/22/16 07:00 97.5 63 18 122/80 (94) 97 Room Air 97.5 12/21/16 23:00 97.5 60 18 139/92 (108) 99 Room Air 97.5 12/21/16 20:00 Room Air 12/21/16 19:00 98.8 60 20 113/78 (90) 100 Room Air 98.8 12/21/16 14:47 97.7 70 18 116/79 (91) 100 Room Air 97.7 12/21/16 10:57 97.7 70 18 116/76 (89) 100 Room Air 97.7 12/21/16 08:00 Room Air 12/21/16 07:00 97.7 61 18 116/82 (93) 100 Room Air 97.7 Laboratory Laboratory Laboratory Tests Test 12/22/16 04:25 Sodium Level 143 mmol/L (136-145) Potassium Level 3.9 mmol/L (3.5-5.1) Chloride Level 107 mmol/L (98-107) Carbon Dioxide Level 28 mmol/L (21-32) Anion Gap 8 (6-14) Blood Urea Nitrogen 12 mg/dL (8-26) Creatinine 0.8 mg/dL (0.7-1.3) Estimated GFR (Cockcroft-Gault) 122.8 BUN/Creatinine Ratio 15 (6-20) Glucose Level 87 mg/dL (70-99) Calcium Level 9.1 mg/dL (8.5-10.1) Total Bilirubin 0.2 mg/dL (0.2-1.0) Aspartate Amino Transf (AST/SGOT) 18 U/L (15-37) Alanine Aminotransferase (ALT/SGPT) 13 U/L (16-63) Alkaline Phosphatase 56 U/L (46-116) Total Protein 7.3 g/dL (6.4-8.2) Albumin 3.4 g/dL (3.4-5.0) Albumin/Globulin Ratio 0.9 (1.0-1.7) Comment Review of Relevant I have reviewed the following items josh (where applicable) has been applied. DAVID PAYNE MD Dec 22, 2016 17:26
--- NOTE | 2016-12-22 18:49 | PDOC ---
PROGRESS NOTES Chief Complaint Chief Complaint 1. Possible seizure 2. Chest pain 3. OA 4. Alcohol abuse 5. Tobacco use History of Present Illness History of Present Illness pt resting comfortably in bed, denies any complaints, answers all questions, states he drinks about 7 beers on the weekend but rarely on weekdays Vitals Vitals Vital Signs Date Time Temp Pulse Resp B/P (MAP) Pulse Ox O2 Delivery O2 Flow Rate FiO2 12/22/16 14:49 97.9 61 18 124/78 (93) 100 Room Air 97.9 Physical Exam General: Alert, Oriented X3, Cooperative, No acute distress Heart: Regular rate, Normal S1, Normal S2, No murmurs Lungs: Clear Abdomen: Normal bowel sounds, Soft, No tenderness, No hepatosplenomegaly, No masses Extremities: No clubbing, No cyanosis, No edema, Normal pulses, No tenderness/ swelling Skin: No rashes, No breakdown, No significant lesion Labs LABS Laboratory Tests Test 12/22/16 04:25 Sodium Level 143 mmol/L (136-145) Potassium Level 3.9 mmol/L (3.5-5.1) Chloride Level 107 mmol/L (98-107) Carbon Dioxide Level 28 mmol/L (21-32) Anion Gap 8 (6-14) Blood Urea Nitrogen 12 mg/dL (8-26) Creatinine 0.8 mg/dL (0.7-1.3) Estimated GFR (Cockcroft-Gault) 122.8 BUN/Creatinine Ratio 15 (6-20) Glucose Level 87 mg/dL (70-99) Calcium Level 9.1 mg/dL (8.5-10.1) Total Bilirubin 0.2 mg/dL (0.2-1.0) Aspartate Amino Transf (AST/SGOT) 18 U/L (15-37) Alanine Aminotransferase (ALT/SGPT) 13 U/L (16-63) Alkaline Phosphatase 56 U/L (46-116) Total Protein 7.3 g/dL (6.4-8.2) Albumin 3.4 g/dL (3.4-5.0) Albumin/Globulin Ratio 0.9 (1.0-1.7) Review of Systems Review of Systems co weakness co pain Assessment and Plan Assessmemt and Plan Problems Medical Problems: (1) Chest pain Status: Acute (2) Seizure Status: Acute Plan Cont cardiac monitoring Await further neuro input ? will he need Keppra on dc? Recheck labs PTOT Home meds Problems: Comment Review of Relevant I have reviewed the following items josh (where applicable) has been applied. Labs Laboratory Tests Test 12/21/16 06:10 12/22/16 04:25 White Blood Count 2.9 x10^3/uL (4.0-11.0) Red Blood Count 4.21 x10^6/uL (4.30-5.70) Hemoglobin 12.6 g/dL (13.0-17.5) Hematocrit 39.1 % (39.0-53.0) Mean Corpuscular Volume 93 fL (79-100) Mean Corpuscular Hemoglobin 30 pg (25-35) Mean Corpuscular Hemoglobin Concent 32 g/dL (31-37) Red Cell Distribution Width 14.0 % (11.5-14.5) Platelet Count 144 x10^3/uL (140-400) Neutrophils (%) (Auto) 22 % (31-73) Lymphocytes (%) (Auto) 66 % (24-48) Monocytes (%) (Auto) 10 % (0-9) Eosinophils (%) (Auto) 2 % (0-3) Basophils (%) (Auto) 1 % (0-3) Neutrophils # (Auto) 0.6 x10^3uL (1.8-7.7) Lymphocytes # (Auto) 1.9 x10^3/uL (1.0-4.8) Monocytes # (Auto) 0.3 x10^3/uL (0.0-1.1) Eosinophils # (Auto) 0.0 x10^3/uL (0.0-0.7) Basophils # (Auto) 0.0 x10^3/uL (0.0-0.2) Segmented Neutrophils % 21 % (35-66) Band Neutrophils % 1 % (0-9) Lymphocytes % 68 % (24-48) Atypical Lymphocytes % (Manual) 2 % (0-0) Monocytes % 6 % (0-10) Eosinophils % 2 % (0-5) Platelet Estimate Adequate (ADEQUATE) Sodium Level 144 mmol/L (136-145) 143 mmol/L (136-145) Potassium Level 4.0 mmol/L (3.5-5.1) 3.9 mmol/L (3.5-5.1) Chloride Level 109 mmol/L (98-107) 107 mmol/L (98-107) Carbon Dioxide Level 27 mmol/L (21-32) 28 mmol/L (21-32) Anion Gap 8 (6-14) 8 (6-14) Blood Urea Nitrogen 13 mg/dL (8-26) 12 mg/dL (8-26) Creatinine 1.0 mg/dL (0.7-1.3) 0.8 mg/dL (0.7-1.3) Estimated GFR (Cockcroft-Gault) 94.9 122.8 BUN/Creatinine Ratio 13 (6-20) 15 (6-20) Glucose Level 79 mg/dL (70-99) 87 mg/dL (70-99) Calcium Level 7.8 mg/dL (8.5-10.1) 9.1 mg/dL (8.5-10.1) Total Bilirubin 0.2 mg/dL (0.2-1.0) 0.2 mg/dL (0.2-1.0) Aspartate Amino Transf (AST/SGOT) 19 U/L (15-37) 18 U/L (15-37) Alanine Aminotransferase (ALT/SGPT) 13 U/L (16-63) 13 U/L (16-63) Alkaline Phosphatase 47 U/L (46-116) 56 U/L (46-116) Total Protein 6.3 g/dL (6.4-8.2) 7.3 g/dL (6.4-8.2) Albumin 3.0 g/dL (3.4-5.0) 3.4 g/dL (3.4-5.0) Albumin/Globulin Ratio 0.9 (1.0-1.7) 0.9 (1.0-1.7) Laboratory Tests Test 12/22/16 04:25 Sodium Level 143 mmol/L (136-145) Potassium Level 3.9 mmol/L (3.5-5.1) Chloride Level 107 mmol/L (98-107) Carbon Dioxide Level 28 mmol/L (21-32) Anion Gap 8 (6-14) Blood Urea Nitrogen 12 mg/dL (8-26) Creatinine 0.8 mg/dL (0.7-1.3) Estimated GFR (Cockcroft-Gault) 122.8 BUN/Creatinine Ratio 15 (6-20) Glucose Level 87 mg/dL (70-99) Calcium Level 9.1 mg/dL (8.5-10.1) Total Bilirubin 0.2 mg/dL (0.2-1.0) Aspartate Amino Transf (AST/SGOT) 18 U/L (15-37) Alanine Aminotransferase (ALT/SGPT) 13 U/L (16-63) Alkaline Phosphatase 56 U/L (46-116) Total Protein 7.3 g/dL (6.4-8.2) Albumin 3.4 g/dL (3.4-5.0) Albumin/Globulin Ratio 0.9 (1.0-1.7) Medications Current Medications Sodium Chloride 1,000 ml @ 100 mls/hr Q10H IV Last administered on 12/20/16 00:57; Start 12/20/16 at 00:30; Stop 12/20/16 at 10:29; Status DC Ondansetron HCl (Zofran) 4 mg PRN Q8HRS PRN IV NAUSEA/VOMITING; Start 12/20/16 at 01:30; Stop 12/21/16 at 01:29; Status DC Fentanyl Citrate (Fentanyl 2ml Vial) 50 mcg PRN Q2HR PRN IV PAIN; Start at 01:30; Stop 12/21/16 at 01:29; Status DC Sodium Chloride 1,000 ml @ 100 mls/hr Q10H IV Last administered on 12/21/16 01:43; Start 12/20/16 at 01:30; Stop 12/21/16 at 01:29; Status DC Acetaminophen (Tylenol) 650 mg PRN Q4HRS PRN PO FEVER; Start 12/20/16 at 01:30 ; Stop 12/21/16 at 01:29; Status DC Aspirin (Cross Pixel Media Aspirin) 325 mg 1X ONCE PO Last administered on 12/20/16 03:35 ; Start 12/20/16 at 02:15; Stop 12/20/16 at 02:16; Status DC Nicotine (Nicoderm Cq 21mg) 1 patch PRN DAILY PRN TD SMOKING CESSATION Last administered on 12/20/16 18:30; Start 12/20/16 at 10:45 Aspirin (Lionel Aspirin) 325 mg DAILYWBKFT PO Last administered on 12/22/16 08: 47; Start 12/21/16 at 08:00 Simvastatin (Zocor) 20 mg HS PO Last administered on 12/21/16 21:34; Start at 21:00 Gadobutrol (Gadavist) 7 mmol 1X ONCE IV Last administered on 12/21/16 12:58; Start 12/21/16 at 12:45; Stop 12/21/16 at 12:46; Status DC Active Scripts Active Reported [no home medications] Vitals/I & O Vital Sign - Last 24 Hours 12/21/16 12/21/16 12/21/16 12/22/16 19:00 20:00 23:00 07:00 Temp 98.8 97.5 97.5 98.8 97.5 97.5 Pulse 60 60 63 Resp 20 18 18 B/P (MAP) 113/78 (90) 139/92 (108) 122/80 (94) Pulse Ox 100 99 97 O2 Delivery Room Air Room Air Room Air Room Air 12/22/16 12/22/16 12/22/16 08:00 11:18 14:49 Temp 98.0 97.9 98.0 97.9 Pulse 62 61 Resp 18 18 B/P (MAP) 133/90 (104) 124/78 (93) Pulse Ox 99 100 O2 Delivery Room Air Room Air Room Air Intake and Output 12/21/16 12/21/16 12/22/16 15:00 23:00 07:00 Intake Total 600 ml 980 ml Balance 600 ml 980 ml WIL MAURICIO III DO Dec 22, 2016 18:49
[2016-12-22 19:00] VITALS: BP 132/81
[2016-12-22] MEDS: SIMVASTATIN 20 MG TABLET PO SCH (21:55)
[2016-12-22 23:00] VITALS: BP 124/89
[2016-12-23 02:35] VITALS: BP 116/75
[2016-12-23 07:00] VITALS: BP 101/71
[2016-12-23] MEDS: ASPIRIN 325 MG TABLET PO SCH (08:33)
[2016-12-23 11:00] VITALS: BP 111/70
--- NOTE | 2016-12-23 11:09 | PDOC ---
PROGRESS NOTES Chief Complaint Chief Complaint 1. Possible seizure 2. Chest pain 3. OA 4. Alcohol abuse 5. Tobacco use History of Present Illness History of Present Illness pt resting comfortably in bed, his is very concerned about his condition and is fearful of his safety without a better definitino of his problem she would prefer to stay to do the 24 hour EEG/ study per neuro. other symptoms appear fine, and he feels well, but they feel his is high risk of injury at home if other possibel seizrue may happen Vitals Vitals Vital Signs Date Time Temp Pulse Resp B/P (MAP) Pulse Ox O2 Delivery O2 Flow Rate FiO2 12/23/16 08:00 Room Air 12/23/16 07:00 97.9 82 19 101/71 (81) 100 97.9 Physical Exam General: Alert, Oriented X3, Cooperative, No acute distress Heart: Regular rate, Normal S1, Normal S2, No murmurs Lungs: Clear Abdomen: Normal bowel sounds, Soft, No tenderness, No hepatosplenomegaly, No masses Extremities: No clubbing, No cyanosis, No edema, Normal pulses, No tenderness/ swelling Skin: No rashes, No breakdown, No significant lesion Review of Systems Review of Systems no n.v.d Assessment and Plan Assessmemt and Plan Problems Medical Problems: (1) Chest pain Status: Acute (2) Seizure Status: Acute Problems: Comment Review of Relevant I have reviewed the following items josh (where applicable) has been applied. Labs Laboratory Tests Test 12/22/16 04:25 Sodium Level 143 mmol/L (136-145) Potassium Level 3.9 mmol/L (3.5-5.1) Chloride Level 107 mmol/L (98-107) Carbon Dioxide Level 28 mmol/L (21-32) Anion Gap 8 (6-14) Blood Urea Nitrogen 12 mg/dL (8-26) Creatinine 0.8 mg/dL (0.7-1.3) Estimated GFR (Cockcroft-Gault) 122.8 BUN/Creatinine Ratio 15 (6-20) Glucose Level 87 mg/dL (70-99) Calcium Level 9.1 mg/dL (8.5-10.1) Total Bilirubin 0.2 mg/dL (0.2-1.0) Aspartate Amino Transf (AST/SGOT) 18 U/L (15-37) Alanine Aminotransferase (ALT/SGPT) 13 U/L (16-63) Alkaline Phosphatase 56 U/L (46-116) Total Protein 7.3 g/dL (6.4-8.2) Albumin 3.4 g/dL (3.4-5.0) Albumin/Globulin Ratio 0.9 (1.0-1.7) Medications Current Medications Sodium Chloride 1,000 ml @ 100 mls/hr Q10H IV Last administered on 12/20/16 00:57; Start 12/20/16 at 00:30; Stop 12/20/16 at 10:29; Status DC Ondansetron HCl (Zofran) 4 mg PRN Q8HRS PRN IV NAUSEA/VOMITING; Start 12/20/16 at 01:30; Stop 12/21/16 at 01:29; Status DC Fentanyl Citrate (Fentanyl 2ml Vial) 50 mcg PRN Q2HR PRN IV PAIN; Start at 01:30; Stop 12/21/16 at 01:29; Status DC Sodium Chloride 1,000 ml @ 100 mls/hr Q10H IV Last administered on 12/21/16 01:43; Start 12/20/16 at 01:30; Stop 12/21/16 at 01:29; Status DC Acetaminophen (Tylenol) 650 mg PRN Q4HRS PRN PO FEVER; Start 12/20/16 at 01:30 ; Stop 12/21/16 at 01:29; Status DC Aspirin (Quick TV Aspirin) 325 mg 1X ONCE PO Last administered on 12/20/16 03:35 ; Start 12/20/16 at 02:15; Stop 12/20/16 at 02:16; Status DC Nicotine (Nicoderm Cq 21mg) 1 patch PRN DAILY PRN TD SMOKING CESSATION Last administered on 12/20/16 18:30; Start 12/20/16 at 10:45 Aspirin (Quick TV Aspirin) 325 mg DAILYWBKFT PO Last administered on 12/23/16 08: 33; Start 12/21/16 at 08:00 Simvastatin (Zocor) 20 mg HS PO Last administered on 12/22/16 21:55; Start at 21:00 Gadobutrol (Gadavist) 7 mmol 1X ONCE IV Last administered on 12/21/16 12:58; Start 12/21/16 at 12:45; Stop 12/21/16 at 12:46; Status DC Active Scripts Active Reported [no home medications] Vitals/I & O Vital Sign - Last 24 Hours 12/22/16 12/22/16 12/22/16 12/22/16 11:18 14:49 19:00 20:00 Temp 98.0 97.9 99.0 98.0 97.9 99.0 Pulse 62 61 62 Resp 18 18 18 B/P (MAP) 133/90 (104) 124/78 (93) 132/81 (98) Pulse Ox 99 100 97 O2 Delivery Room Air Room Air Room Air Room Air 12/22/16 12/22/16 12/23/16 12/23/16 21:57 23:00 02:35 07:00 Temp 98.1 97.7 97.9 98.1 97.7 97.9 Pulse 58 63 82 Resp 18 B/P (MAP) 124/89 (101) 116/75 (89) 101/71 (81) Pulse Ox 98 97 100 O2 Delivery Room Air Room Air Room Air Room Air 12/23/16 08:00 O2 Delivery Room Air Intake and Output 12/22/16 12/22/16 12/23/16 15:00 23:00 07:00 Intake Total 360 ml 240 ml Balance 360 ml 240 ml ANYA FOSTER MD Dec 23, 2016 11:09
[2016-12-23] MEDS ORDERED: LEVE500T56 PO (12:30)
--- NOTE | 2016-12-23 12:33 | PDOC3 ---
Discharge Summary Visit Information Date of Admission: Dec 20, 2016 Date of Discharge: Dec 23, 2016 Admitting Diagnosis: possible seizure Final Diagnosis 1. Possible seizure 2. Chest pain 3. OA 4. Alcohol abuse 5. Tobacco use Problems Medical Problems: (1) Chest pain Status: Acute (2) Seizure Status: Acute Brief Hospital Course Allergies Allergies Coded Allergies Type Severity Reaction Last Updated Verified Pork/Porcine Containing Products Allergy Intermediate 12/23/16 Yes adhesive tape Allergy Intermediate 12/20/16 Yes Vital Signs Vital Signs Date Time Temp Pulse Resp B/P (MAP) Pulse Ox O2 Delivery O2 Flow Rate FiO2 12/23/16 11:00 97.9 64 19 111/70 (84) 99 Room Air 97.9 Lab Results Laboratory Tests Test 12/22/16 04:25 Sodium Level 143 mmol/L (136-145) Potassium Level 3.9 mmol/L (3.5-5.1) Chloride Level 107 mmol/L (98-107) Carbon Dioxide Level 28 mmol/L (21-32) Anion Gap 8 (6-14) Blood Urea Nitrogen 12 mg/dL (8-26) Creatinine 0.8 mg/dL (0.7-1.3) Estimated GFR (Cockcroft-Gault) 122.8 BUN/Creatinine Ratio 15 (6-20) Glucose Level 87 mg/dL (70-99) Calcium Level 9.1 mg/dL (8.5-10.1) Total Bilirubin 0.2 mg/dL (0.2-1.0) Aspartate Amino Transf (AST/SGOT) 18 U/L (15-37) Alanine Aminotransferase (ALT/SGPT) 13 U/L (16-63) Alkaline Phosphatase 56 U/L (46-116) Total Protein 7.3 g/dL (6.4-8.2) Albumin 3.4 g/dL (3.4-5.0) Albumin/Globulin Ratio 0.9 (1.0-1.7) Brief Hospital Course Mr. August is a 51 old man admit with possibel seizure, maybe due to THC use Neuro wants 24 hour EEG, will be done as outpatient Keppra 500 BID, stop 1 day before EEG, no drivign 6 mos Discharge Information Condition at Discharge: Improved Follow Up: Weeks Disposition/Orders: D/C to Home Miscellaneous Medications [no home medications], (Reported) Patient Instructions Patient Instructions time > 30 min ANYA FOSTER MD Dec 23, 2016 12:33
--- NOTE | 2016-12-23 13:17 | PDOC ---
PROGRESS NOTES Assessment Assessment Seizure like episodes, related to marijuana most likely. Chest tightness. Right eye blurred vision and dizziness on 12/21/16. Headache. Generalized weakness, brief, on 12/20/16. HLD COPD No evidence of acute CVA or brain tumor this time. RECOMMENDATIONS/PLAN: Continue ASA daily. Continue Zocor 20 mg HS. Cardiac evaluation. Treat medical diseases. Suggest 24-hour LTM VEEG scheduled as outpatient base per EEG lab. Keppra 500 mg bid. Patient education for seizure precautions. No driving x 6 months per [place] [employer]. FU with PCP. FU with Neurology. Discussed in all detail with him and his on 12/23/16, and they understood. HCT: negative. EEG on 12/20: Normal study. HISTORY OF THE PRESENT ILLNESS: 51-y-old AA male patient had symptoms of chest tightness. He was reportedly also had a seizure like episode, but no detailed information is about his seizure like episode this time. He stated he had similar seizure like episode 3 times so far this year but no AEDs nor a formal diagnosis. No focalized motor or sensory deficits. He complained right side blurred vision, dizziness on 12/21/16 also stated he has headaches from time to time. MRI was negative. PAST MEDICAL HISTORY: Please see above. PAST SURGERY HISTORY: Pelvid plate? ALLERGY: Reviewed. MEDICATIONS: Refer to [facility] FAMILY HISTORY: HTN SOCIAL HISTORY: Lives with his at home. Denies illicit drug use. He smokes 1 pack of cigarettes a day for many years. He drinks 6-10 beers a week. REVIEW OF SYSTEMS: Constitutional: No malnutrition, weight loss, cachexia. Head: No traumatic brain or head injury this time. Skin: No edema, or rash. Ear: No infection. Eyes: No vision loss or color blindness. Nose: No bleeding or purulent discharges. Hearing: No hearing decrease. Neck: No current injury. Cardiac: Chest tightness. Pulmonary: COPD. GI: No GI ulcer, GI bleeding. Urinary/genital: No dysuria, incontinence, urinary retention. Endocrinologic: No cousin face, craniofacial dysmorphism, polydactyly. Skeletomuscular: No muscular atrophy, deformity. Neurological: see HP. Psychiatric: Smoking and drinking. Otherwise, not [id number] review of systems. PHYSICAL EXAMINATION: General appearance is in no acute distress. HEENT: Normocephalic and nontraumatic. Eyes, nose, ears, and throat are unremarkable. Neck is supple. No lymphadenopathy. No crepitus. Cardiovascular: S1, S2, regular rate and rhythm. Pulmonary: Clear to auscultation bilaterally. Abdomen: Bowel sounds are positive. Extremities: No rash, lesions, or edema. No restriction of range of motion NEUROLOGICAL EXAMINATION: Alert Oriented to time, place and person. PERRL. EOMI. CN: no focal findings. Muscle tone: within normal. Muscle strength: 5 DTR: 2 Plantar reflex: Flexor response bilaterally Gait: not examined in bed. Sensory exam: no abnormal findings. No acute cerebellar signs elicited. F-T-N test fine. Objective Objective Vital Signs Date Time Temp Pulse Resp B/P (MAP) Pulse Ox O2 Delivery O2 Flow Rate FiO2 12/23/16 11:00 97.9 64 19 111/70 (84) 99 Room Air 97.9 Intake and Output 12/23/16 07:00 Intake Total 600 ml Balance 600 ml Intake Oral 600 ml # Voids 5 Vitals Signs Vitals VS - Last 72 Hours, by Label Date Time Temp Pulse Resp B/P (MAP) Pulse Ox O2 Delivery O2 Flow Rate FiO2 12/23/16 11:00 97.9 64 19 111/70 (84) 99 Room Air 97.9 12/23/16 08:00 Room Air 12/23/16 07:00 97.9 82 19 101/71 (81) 100 Room Air 97.9 12/23/16 02:35 97.7 63 18 116/75 (89) 97 Room Air 97.7 12/22/16 23:00 98.1 58 18 124/89 (101) 98 Room Air 98.1 12/22/16 21:57 Room Air 12/22/16 20:00 Room Air 12/22/16 19:00 99.0 62 18 132/81 (98) 97 Room Air 99.0 12/22/16 14:49 97.9 61 18 124/78 (93) 100 Room Air 97.9 12/22/16 11:18 98.0 62 18 133/90 (104) 99 Room Air 98.0 12/22/16 08:00 Room Air 12/22/16 07:00 97.5 63 18 122/80 (94) 97 Room Air 97.5 Comment Review of Relevant I have reviewed the following items josh (where applicable) has been applied. DAVID PAYNE MD Dec 23, 2016 13:17
== END 2016-12-23 15:48 | disposition home or self-care (01) ==
LOC: ER 22:18 → 5 NORTH 12-20 00:15
PROVIDERS: ADMIT Internal Medicine; ATTEND Internal Medicine
DX: R07.89 Other chest pain (principal); R53.1 Weakness; E78.5 Hyperlipidemia, unspecified; J44.9 Chronic obstructive pulmonary disease, unspecified; R56.9 Unspecified convulsions; F10.10 Alcohol abuse, uncomplicated; M19.90 Unspecified osteoarthritis, unspecified site
CPT/HCPCS: 36415; 70450; 70553; 71010; 80048; 80053; 80061; 80076; 81001; 82553; 83690; 83735; 83880; 84443; 84484; 85007; 85027; 93005; 93306; 95816; 96360; 96361; 99285; A9585; G0378; G0481; J7030; 96374; G0379

== ENCOUNTER 2018-12-25 09:22 | Emergency (ER) | payer BC ==
[~2018-12-25] VITALS: Ht 177.8 cm; Wt 65.0 kg
[~2018-12-25 09:22] MED LIST: LEVE500T56 PO; no home medications
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
[2018-12-25 09:52] LABS: BASO % 1 % (0-3); EOS % 1 % (0-3); HEMATOCRIT 38.6 % (39.0-53.0); LYMPH # 1.7 x10^3/uL (1.0-4.8); LYMPH % 51 % (24-48); MEAN CORPUSCULAR HEMOGLOBIN 32 pg (25-35); MEAN CORPUSCULAR HGB CONC 34 g/dL (31-37); MEAN CORPUSCULAR VOLUME 94 fL (79-100); MONO # 0.3 x10^3/uL (0.0-1.1); MONO % 10 % (0-9); NEUT # 1.2 x10^3/uL (1.8-7.7); NEUT % 37 % (31-73); PLATELET COUNT 168 x10^3/uL (140-400); RED BLOOD COUNT 4.13 x10^6/uL (4.30-5.70); RED CELL DISTRIBUTION WIDTH 14.1 % (11.5-14.5); WHITE BLOOD COUNT 3.3 x10^3/uL (4.0-11.0)
--- NOTE | 2018-12-25 10:00 | RAD ---
EXAM: CHEST 1 VIEW History: Chest pain COMPARISON: 12/20/2016 TECHNIQUE: Single portable radiograph of the chest FINDINGS: The cardiac silhouette is unremarkable. The lungs are clear bilaterally. The costophrenic sulci are clear and well demarcated. IMPRESSION: No radiographic evidence of an acute cardiopulmonary process. Electronically signed by: Tarik Rodriguez MD (12/25/2018 9:58 AM) [facility]
[2018-12-25 10:04] LABS: CALCIUM 8.6 mg/dL (8.5-10.1); CREATININE 0.9 mg/dL (0.7-1.3); GFR 106.4; POTASSIUM 3.7 mmol/L (3.5-5.1)
[2018-12-25 10:09] LABS: ALBUMIN 3.3 g/dL (3.4-5.0); ALBUMIN/GLOBULIN RATIO 0.8 (1.0-1.7); TOTAL BILIRUBIN 0.3 mg/dL (0.2-1.0); TOTAL PROTEIN 7.2 g/dL (6.4-8.2)
[2018-12-25] MEDS ORDERED: ASPIRIN CHEWABLE 81 MG TABLET. PO ONE (10:15)
[2018-12-25] MEDS ORDERED: CONTRAST GIVEN. MC PRN (10:30)
[2018-12-25] MEDS ORDERED: IOHEXOL 350 MG/ML 100 ML VIAL. IV ONE (10:30)
--- NOTE | 2018-12-25 11:16 | RAD ---
Examination: CT ANGIOGRAPHY CHEST History: Shortness of breath and chest pain, elevated d-dimer Comparison/Correlation: None Findings: Axial images of chest were obtained following IV contrast according to pulmonary arterial protocol. Sagittal and coronal reformatted images were provided. MIP images provided. Pulmonary arterial vasculature is normal with no thromboembolic disease. Right infrahilar calcified lymph node is present. Right posterior lower lung field calcified granuloma is present. Centrilobular emphysematous involvement of the lung carlos is present. No suspicious pulmonary nodule or mass. No infiltrate or pleural effusion. Bony structures are unremarkable. Thoracic aorta is unremarkable. Impression: Centrilobular emphysema. No pulmonary arterial thromboembolic disease. No infiltrate. PQRS Compliance Statement: One or more of the following individualized dose reduction techniques were utilized for this examination: 1. Automated exposure control 2. Adjustment of the mA and/or kV according to patient size 3. Use of iterative reconstruction technique Electronically signed by: Hi Fowler MD (12/25/2018 11:13 AM) [id number]
[2018-12-25 11:18] VITALS: BP 127/76
--- NOTE | 2018-12-25 11:39 | EKG ---
[address] [place] [id number] Test Date: 2018-12-25 Test Time: 09:30:20 Pat Name: HERSON WHITAKER Department: Room: Gender: M [employer]el[employer] Director: : [id number] Requested By: AMELIA FLORES Order Number: [id number] Reading MD: Measurements Intervals [place] Rate: 70 P: 72 OK: 154 QRS: 56 QRSD: 90 T: 59 QT: 376 QTc: 408 Interpretive Statements SINUS RHYTHM NORMAL ECG No previous ECG available for comparison
== END 2018-12-25 11:41 | disposition home or self-care (01) ==
LOC: ER 09:22
DX: R07.81 Pleurodynia (principal); R42 Dizziness and giddiness; R06.02 Shortness of breath; R53.1 Weakness; Z79.82 Long term (current) use of aspirin; F17.210 Nicotine dependence, cigarettes, uncomplicated; Z88.8 Allergy status to other drugs, medicaments and biological substances; Z91.018 Allergy to other foods
CPT/HCPCS: 36415; 71045; 71275; 80053; 83690; 83880; 84484; 85025; 85379; 93005; 99285; Q9967